=== PATIENT | male | born 1960 | race Caucasian/White ===

== ENCOUNTER 2017-11-02 19:59 | Inpatient (IN) | payer OTHER ==
[~2017-11-02] VITALS: Ht 175.3 cm; Wt 97.0 kg
[2017-11-02] MEDS ORDERED: ASPIRIN 325 MG TABLET PO STA (20:04)
[2017-11-02 20:20] LABS: BASOPHILS # (AUTO) 0.04 x10^3/uL (0-0.1); BASOPHILS % (AUTO) 0 % (0-1); EOSINOPHILS # (AUTO) 0.15 x10^3/uL (0-0.4); EOSINOPHILS % (AUTO) 2 % (1-7); LYMPHOCYTES # (AUTO) 2.48 x10^3/uL (1-3.4); LYMPHOCYTES % (AUTO) 27 % (22-44); MD NO; MEAN CORPUSCULAR HEMOGLOBIN 30.2 pg (27.5-34.5); MEAN CORPUSCULAR HGB CONC 34.1 g/dL (33.2-36.2); MEAN CORPUSCULAR VOLUME 88.4 fL (81-97); MEAN PLATELET VOLUME 7.1 fL (7.4-10.4); MONOCYTES # (AUTO) 0.58 x10^3/uL (0.2-0.8); MONOCYTES % (AUTO) 6 % (2-9); NEUTROPHILS # (AUTO) 6.05 x10^3/uL (1.8-6.8); NEUTROPHILS % (AUTO) 65 % (42-75); PLATELET COUNT 295 x10^3/uL (130-400); RED BLOOD COUNT 5.85 x10^6/uL (4.38-5.82)
[2017-11-02 20:26] LABS: INTERNATIONAL NORMALIZED RATIO 0.97 (0.93-1.1)
[2017-11-02] MEDS ORDERED: LIDOCAINE-MPF 2% ,5ML ONE (20:26)
[2017-11-02] MEDS ORDERED: HEPARIN 1,000 UNITS/ML, 10ML ONE (20:26)
[2017-11-02] MEDS ORDERED: FENTANYL PF 100 MCG/2ML ONE (20:26)
[2017-11-02] MEDS ORDERED: VERAPAMIL 2.5 MG/ML, 2ML ONE (20:26)
[2017-11-02] MEDS ORDERED: BIVALIRUDIN 250 MG ONE (20:26)
[2017-11-02] MEDS ORDERED: TICAGRELOR 90 MG TABLET ONE (20:26)
[2017-11-02] MEDS ORDERED: MIDAZOLAM 1 MG/ML, 5ML ONE (20:26)
[2017-11-02] MEDS ORDERED: FENTANYL PF 100 MCG/2ML IVPush PRN (20:30)
[2017-11-02] MEDS ORDERED: PLEASE ENTER HEIGHT AND WEIGHT MC SCH (20:30)
[2017-11-02] MEDS ORDERED: PLEASE ENTER ALLERGIES MC SCH (20:30)
[2017-11-02] MEDS ORDERED: NITROGLYCERIN 0.4 MG BOTTLE (25 TABS) SL PRN (20:30)
[2017-11-02] MEDS ORDERED: ONDANSETRON 2MG/ML, 2ML IVPush PRN (21:00)
[2017-11-02] MEDS ORDERED: BISACODYL 5 MG EC TABLET PO PRN (21:00)
[2017-11-02] MEDS ORDERED: ACETAMINOPHEN 325 MG TABLET PO PRN (21:00)
[2017-11-02] MEDS ORDERED: ONDANSETRON ODT 4 MG PO PRN (21:30)
[2017-11-02] MEDS: SODIUM CHLORIDE 0.9% 1,000 ML IV SCH (21:59)
[2017-11-02] MEDS: TICAGRELOR 90 MG TABLET PO SCH (22:00)
[2017-11-02] MEDS: METOPROLOL TARTRATE 25 MG TABLET PO SCH (22:00)
[2017-11-02] MEDS: ATORVASTATIN 80 MG TABLET PO SCH (22:00)
[2017-11-03] MEDS ORDERED: MORPHINE SULFATE 4 MG/ML, 1ML IVPush PRN
[2017-11-03] MEDS: SODIUM CHLORIDE 0.9% 1,000 ML IV SCH (04:38)
[2017-11-03 04:49] VITALS: BP 166/97
[2017-11-03] MEDS: METOPROLOL TARTRATE 25 MG TABLET PO SCH ×2 (04:49→17:16)
[2017-11-03 05:00] LABS: ALBUMIN 3.8 g/dL (3.4-5.0); ANION GAP 8 mmol/L (5-15); CALCIUM 8.6 mg/dL (8.5-10.1); CHLORIDE 107 mmol/L (98-107); CREATININE 1.01 mg/dL (0.7-1.3)
[2017-11-03] MEDS: ASPIRIN 81 MG TABLET EC PO SCH (08:20)
[2017-11-03] MEDS: TICAGRELOR 90 MG TABLET PO SCH ×2 (08:20→20:39)
[2017-11-03] MEDS: LISINOPRIL 5 MG TABLET PO SCH (10:51)
[2017-11-03 17:15] VITALS: BP 111/70
[2017-11-03 20:00] VITALS: BP 155/95
[2017-11-03] MEDS: ATORVASTATIN 80 MG TABLET PO SCH (20:39)
[2017-11-03] MEDS: ZOLPIDEM 5MG TABLET PO PRN (22:42)
[2017-11-04 02:00] VITALS: BP 150/91
[2017-11-04 05:58] VITALS: BP 166/108
[2017-11-04] MEDS: METOPROLOL TARTRATE 25 MG TABLET PO SCH ×2 (05:59→18:06)
[2017-11-04] MEDS: TICAGRELOR 90 MG TABLET PO SCH ×2 (07:59→20:14)
[2017-11-04] MEDS: LISINOPRIL 5 MG TABLET PO SCH (07:59)
[2017-11-04] MEDS: ASPIRIN 81 MG TABLET EC PO SCH (07:59)
[2017-11-04 09:31] VITALS: BP 150/95
[2017-11-04 14:23] VITALS: BP 128/79
[2017-11-04 18:43] VITALS: BP 142/84
[2017-11-04] MEDS: ATORVASTATIN 80 MG TABLET PO SCH (20:13)
[2017-11-04] MEDS: LISINOPRIL 10 MG TABLET PO SCH (20:14)
[2017-11-04] MEDS: ZOLPIDEM 5MG TABLET PO PRN (22:50)
[2017-11-05 03:50] VITALS: BP 148/91
[2017-11-05] MEDS: METOPROLOL TARTRATE 25 MG TABLET PO SCH (05:44)
[2017-11-05 06:53] VITALS: BP 150/100
[2017-11-05] MEDS ORDERED: ASPI-621 PO (08:17)
[2017-11-05] MEDS ORDERED: ATOR-2 PO (08:17)
[2017-11-05] MEDS ORDERED: LISI-167 PO (08:17)
[2017-11-05] MEDS ORDERED: METO50TA4 PO (08:17)
[2017-11-05] MEDS ORDERED: TICA90TA PO (08:17)
[2017-11-05] MEDS: TICAGRELOR 90 MG TABLET PO SCH (09:04)
[2017-11-05] MEDS: ASPIRIN 81 MG TABLET EC PO SCH (09:04)
[2017-11-05] MEDS: LISINOPRIL 10 MG TABLET PO SCH (09:04)
[2017-11-05 09:05] VITALS: BP 150/95
[2017-11-05] MEDS ORDERED: LISI-170 PO (14:04)
== END 2017-11-05 10:30 | disposition home or self-care (01) | DRG 247 ==
LOC: ED 21:05 → CCU 21:09 → ED 23:19 → 5SO 11-03 17:00 → DCLOUNGE 11-05 10:07
PROVIDERS: ADMIT Internal Medicine Cardiovascular Disease; ATTEND Internal Medicine Cardiovascular Disease
PROC: 027034Z Dilation of Coronary Artery, One Artery with Drug-eluting Intraluminal Device, Percutaneous Approach (ICD-10-PCS; principal; 2017-11-02)
PROC: 4A023N7 Measurement of Cardiac Sampling and Pressure, Left Heart, Percutaneous Approach (ICD-10-PCS; 2017-11-02)
PROC: B2111ZZ Fluoroscopy of Multiple Coronary Arteries using Low Osmolar Contrast (ICD-10-PCS; 2017-11-02)
PROC: B2151ZZ Fluoroscopy of Left Heart using Low Osmolar Contrast (ICD-10-PCS; 2017-11-02)
DX: I21.4 Non-ST elevation (NSTEMI) myocardial infarction (principal); I11.9 Hypertensive heart disease without heart failure; E11.9 Type 2 diabetes mellitus without complications; E66.9 Obesity, unspecified; E78.5 Hyperlipidemia, unspecified; I35.1 Nonrheumatic aortic (valve) insufficiency; I44.0 Atrioventricular block, first degree; I44.4 Left anterior fascicular block; Z68.31 Body mass index [BMI] 31.0-31.9, adult; Z82.49 Family history of ischemic heart disease and other diseases of the circulatory system; Z95.5 Presence of coronary angioplasty implant and graft; Z87.891 Personal history of nicotine dependence
CPT/HCPCS: 36415; 71045; 80047; 80048; 82040; 84484; 85025; 85610; 85730; 87081; 93005; 93306; 93458; 99156; 99291; C1769; C1894; J0583; J1644; J2250; J2405; J3010; J3490; C1725; C1874; C1887; J7030; Q9967

== ENCOUNTER 2018-07-11 13:09 | Emergency (ER) | payer OTHER ==
[~2018-07-11] VITALS: Ht 175.3 cm; Wt 90.6 kg
[~2018-07-11 13:09] MED LIST: ASPI81TA45 PO; ATOR-2 PO; LISI-167 PO; LISI-170 PO; METO50TA4 PO; TICA90TA PO
[2018-07-11] MEDS ORDERED: MAALOX/HYOSCYAMINE/LIDOCAINE 45 ML BTL ONE (14:15)
[2018-07-11] MEDS ORDERED: ASPIRIN 81 MG TABLET CHEW ONE (14:15)
[2018-07-11] MEDS ORDERED: ASPIRIN 81 MG TABLET CHEW PO ONE (14:30)
[2018-07-11] MEDS ORDERED: MAALOX/HYOSCYAMINE/LIDOCAINE 45 ML BTL PO ONE (14:30)
[2018-07-11 14:31] LABS: MEAN CORPUSCULAR HEMOGLOBIN 31.5 pg (27.5-34.5); MEAN CORPUSCULAR HGB CONC 34.4 g/dL (33.2-36.2); MEAN CORPUSCULAR VOLUME 91.6 fL (81-97); RED BLOOD COUNT 5.33 x10^6/uL (4.38-5.82); RED CELL DISTRIBUTION WIDTH 12.9 % (9.4-14.8)
[2018-07-11 14:32] LABS: BASOPHILS # (AUTO) 0.02 x10^3/uL (0-0.1); BASOPHILS % (AUTO) 0 % (0-1); EOSINOPHILS # (AUTO) 0.11 x10^3/uL (0-0.4); EOSINOPHILS % (AUTO) 2 % (1-7); LYMPHOCYTES # (AUTO) 1.74 x10^3/uL (1-3.4); LYMPHOCYTES % (AUTO) 24 % (22-44); MD NO; MEAN PLATELET VOLUME 6.9 fL (7.4-10.4); MONOCYTES # (AUTO) 0.44 x10^3/uL (0.2-0.8); MONOCYTES % (AUTO) 6 % (2-9); NEUTROPHILS # (AUTO) 4.93 x10^3/uL (1.8-6.8); NEUTROPHILS % (AUTO) 68 % (42-75); PLATELET COUNT 298 x10^3/uL (130-400)
[2018-07-11 14:39] LABS: ALBUMIN 4.2 g/dL (3.4-5.0); ANION GAP 5 mmol/L (5-15); CHLORIDE 103 mmol/L (98-107)
[2018-07-11 14:44] LABS: ALANINE AMINOTRANSFERASE 35 U/L (12-78); ALKALINE PHOSPHATASE 117 U/L (45-117); BILIRUBIN,TOTAL 0.7 mg/dL (0.2-1.0); CREATININE 1.32 mg/dL (0.7-1.3); TOTAL PROTEIN 8.1 g/dL (6.4-8.2); TROPONIN I < 0.015 ng/mL (0.000-0.045)
[2018-07-11 16:01] VITALS: BP 109/67
== END 2018-07-11 16:03 | disposition home or self-care (01) ==
LOC: ED 15:36
DX: R07.89 Other chest pain (principal); I25.2 Old myocardial infarction; I10 Essential (primary) hypertension; E11.9 Type 2 diabetes mellitus without complications; E78.5 Hyperlipidemia, unspecified
CPT/HCPCS: 36415; 71045; 80053; 83880; 84484; 85025; 93005; 99284

== ENCOUNTER 2018-12-13 13:16 | Emergency (ER) | payer OTHER ==
[~2018-12-13] VITALS: Ht 175.3 cm; Wt 90.7 kg
[2018-12-13] MEDS ORDERED: MAALOX/HYOSCYAMINE/LIDOCAINE 45 ML BTL ONE (13:50)
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
[2018-12-13] MEDS ORDERED: MAALOX/HYOSCYAMINE/LIDOCAINE 45 ML BTL PO ONE (14:00)
[2018-12-13 14:02] LABS: BASOPHILS # (AUTO) 0.04 x10^3/uL (0-0.1); BASOPHILS % (AUTO) 1 % (0-1); EOSINOPHILS # (AUTO) 0.08 x10^3/uL (0-0.4); EOSINOPHILS % (AUTO) 1 % (1-7); LYMPHOCYTES # (AUTO) 1.58 x10^3/uL (1-3.4); LYMPHOCYTES % (AUTO) 21 % (22-44); MD NO; MEAN CORPUSCULAR HEMOGLOBIN 30.4 pg (27.5-34.5); MEAN CORPUSCULAR HGB CONC 32.9 g/dL (33.2-36.2); MEAN CORPUSCULAR VOLUME 92.5 fL (81-97); MEAN PLATELET VOLUME 6.6 fL (7.4-10.4); MONOCYTES # (AUTO) 0.42 x10^3/uL (0.2-0.8); MONOCYTES % (AUTO) 6 % (2-9); NEUTROPHILS % (AUTO) 72 % (42-75); PLATELET COUNT 263 x10^3/uL (130-400); RED BLOOD COUNT 5.22 x10^6/uL (4.38-5.82); RED CELL DISTRIBUTION WIDTH 13.3 % (9.4-14.8)
[2018-12-13 14:13] LABS: ALANINE AMINOTRANSFERASE 34 U/L (12-78); ANION GAP 6 mmol/L (5-15); CALCIUM 9.6 mg/dL (8.5-10.1); CHLORIDE 105 mmol/L (98-107)
[2018-12-13 14:18] LABS: ALKALINE PHOSPHATASE 94 U/L (45-117); BILIRUBIN,TOTAL 0.7 mg/dL (0.2-1.0); TOTAL PROTEIN 7.5 g/dL (6.4-8.2); TROPONIN I < 0.015 ng/mL (0.000-0.045)
[2018-12-13 15:19] LABS: MICROSCOPIC NOT IND
[2018-12-13 15:30] LABS: CULTURE INDICATED? NO
--- NOTE | 2018-12-13 15:31 | NUR ---
Break RN: US complete, pt sitting up in bed on phone. No needs at this time. Results pending.
--- NOTE | 2018-12-13 15:31 | NUR ---
Note jeny in EDM - 12/13/18 at 1553 by TRAM Break RN: US complete, pt sitting up in bed on phone. No needs at this time. Results pending.
[2018-12-13 15:46] VITALS: BP 105/72
== END 2018-12-13 16:19 | disposition home or self-care (01) ==
LOC: ED 14:55
DX: K29.00 Acute gastritis without bleeding (principal); R10.13 Epigastric pain; E78.5 Hyperlipidemia, unspecified; E11.9 Type 2 diabetes mellitus without complications; I10 Essential (primary) hypertension; I25.2 Old myocardial infarction
CPT/HCPCS: 36415; 76700; 80053; 81003; 83690; 84484; 85025; 93005; 99284

== ENCOUNTER 2019-07-17 20:38 | Emergency (ER) | payer OTHER ==
[~2019-07-17] VITALS: Ht 175.3 cm; Wt 92.8 kg
[2019-07-17 20:41] VITALS: BP 167/97
[2019-07-17 21:13] LABS: BASOPHILS # (AUTO) 0.03 x10^3/uL (0-0.1); BASOPHILS % (AUTO) 0 % (0-1); EOSINOPHILS # (AUTO) 0.13 x10^3/uL (0-0.4); EOSINOPHILS % (AUTO) 2 % (1-7); LYMPHOCYTES # (AUTO) 1.92 x10^3/uL (1-3.4); LYMPHOCYTES % (AUTO) 27 % (22-44); MD NO; MEAN CORPUSCULAR HEMOGLOBIN 31.9 pg (27.5-34.5); MEAN CORPUSCULAR HGB CONC 33.8 g/dL (33.2-36.2); MEAN CORPUSCULAR VOLUME 94.4 fL (81-97); MEAN PLATELET VOLUME 6.8 fL (7.4-10.4); MONOCYTES # (AUTO) 0.45 x10^3/uL (0.2-0.8); MONOCYTES % (AUTO) 6 % (2-9); NEUTROPHILS # (AUTO) 4.57 x10^3/uL (1.8-6.8); NEUTROPHILS % (AUTO) 64 % (42-75); PLATELET COUNT 286 x10^3/uL (130-400); RED BLOOD COUNT 5.11 x10^6/uL (4.38-5.82); RED CELL DISTRIBUTION WIDTH 13.6 % (9.4-14.8)
[2019-07-17 21:25] LABS: ALANINE AMINOTRANSFERASE 43 U/L (12-78); ALBUMIN 4.1 g/dL (3.4-5.0); ANION GAP 5 mmol/L (5-15); CALCIUM 10.1 mg/dL (8.5-10.1); CHLORIDE 105 mmol/L (98-107); CREATININE 1.15 mg/dL (0.7-1.3)
[2019-07-17 21:29] LABS: ALKALINE PHOSPHATASE 84 U/L (45-117); BILIRUBIN,TOTAL 0.5 mg/dL (0.2-1.0); TOTAL PROTEIN 7.9 g/dL (6.4-8.2); TROPONIN I < 0.015 ng/mL (0.000-0.045)
== END 2019-07-17 22:26 | disposition home or self-care (01) ==
LOC: ED 21:51
DX: R07.89 Other chest pain (principal); R06.02 Shortness of breath; R42 Dizziness and giddiness
CPT/HCPCS: 36415; 71045; 76700; 80053; 83880; 84484; 85025; 93005; 99284

== ENCOUNTER 2020-04-09 19:34 | Emergency (ER) | payer OTHER ==
[~2020-04-09] VITALS: Ht 175.3 cm; Wt 88.2 kg
--- NOTE | 2020-04-09 19:55 | NUR ---
FLOOR FRAMER: EKG DONE IN TRIAGE.
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
[2020-04-09] MEDS ORDERED: SODIUM CHLORIDE FLUSH 10ML SYR IVF ONE (20:30)
[2020-04-09 20:49] LABS: BASOPHILS # (AUTO) 0.07 x10^3/uL (0-0.1); BASOPHILS % (AUTO) 1 % (0-1); EOSINOPHILS # (AUTO) 0.14 x10^3/uL (0-0.4); EOSINOPHILS % (AUTO) 2 % (1-7); LYMPHOCYTES # (AUTO) 1.79 x10^3/uL (1-3.4); LYMPHOCYTES % (AUTO) 22 % (22-44); MD NO; MEAN CORPUSCULAR HEMOGLOBIN 31.9 pg (27.5-34.5); MEAN CORPUSCULAR HGB CONC 33.6 g/dL (33.2-36.2); MEAN PLATELET VOLUME 6.5 fL (7.4-10.4); MONOCYTES # (AUTO) 0.28 x10^3/uL (0.2-0.8); MONOCYTES % (AUTO) 3 % (2-9); NEUTROPHILS # (AUTO) 5.99 x10^3/uL (1.8-6.8); NEUTROPHILS % (AUTO) 72 % (42-75); PLATELET COUNT 283 x10^3/uL (130-400); RED BLOOD COUNT 4.84 x10^6/uL (4.38-5.82); RED CELL DISTRIBUTION WIDTH 14.4 % (9.4-14.8)
[2020-04-09 20:58] LABS: ALANINE AMINOTRANSFERASE 48 U/L (12-78); ALBUMIN 3.8 g/dL (3.4-5.0); ANION GAP 4 mmol/L (5-15); CALCIUM 9.9 mg/dL (8.5-10.1); CHLORIDE 103 mmol/L (98-107)
[2020-04-09 21:03] LABS: ALKALINE PHOSPHATASE 66 U/L (45-117); BILIRUBIN,TOTAL 0.7 mg/dL (0.2-1.0); CREATININE 1.16 mg/dL (0.7-1.3); TOTAL PROTEIN 7.4 g/dL (6.4-8.2); TROPONIN I < 0.015 ng/mL (0.000-0.045)
[2020-04-09 21:14] VITALS: BP 112/56
[2020-04-09] MEDS ORDERED: MAALOX/HYOSCYAMINE/LIDOCAINE 45 ML BTL ONE (21:41)
[2020-04-09] MEDS ORDERED: MAALOX/HYOSCYAMINE/LIDOCAINE 45 ML BTL PO ONE (22:00)
--- NOTE | 2020-04-09 22:10 | NUR ---
Pt medicated per emar.
--- NOTE | 2020-04-09 22:29 | NUR ---
Patient/Caregiver given discharge instructions and they have confirmed that they understand the instructions. Patient ambulatory with steady gait.
== END 2020-04-09 22:32 | disposition home or self-care (01) ==
LOC: ED 20:53
DX: I25.10 Atherosclerotic heart disease of native coronary artery without angina pectoris (principal); R07.89 Other chest pain; I25.2 Old myocardial infarction; E11.9 Type 2 diabetes mellitus without complications; I10 Essential (primary) hypertension; E78.5 Hyperlipidemia, unspecified; K21.9 Gastro-esophageal reflux disease without esophagitis; Z98.61 Coronary angioplasty status
CPT/HCPCS: 36415; 71045; 80053; 84484; 85025; 93005; 99285

== ENCOUNTER 2020-05-20 14:58 | Day surgery (SDC) | payer OTHER ==
[~2020-05-20] VITALS: Ht 175.3 cm; Wt 91.2 kg
[~2020-05-20 14:58] MED LIST changes: +CEFAZOLIN 1,000 MG ONE; +DEXAMETHASONE 4 MG/ML, 1ML ONE; +KETOROLAC 30 MG/1 ML ONE; +ONDANSETRON 2MG/ML, 2ML ONE; +PROPOFOL 10 MG/ML, 20ML ONE; +SUCCINYLCHOLINE 20 MG/ML, 10ML ONE; +SUGAMMADEX 200 MG/2 ML IVPush ONE
--- NOTE | 2020-05-20 15:16 | NUR ---
C/O RLQ PAIN. STARTED YESTERDAY. WORSENS W/ COUGHING, MOVEMENT. DENIES N/V. DIARRHEA YESTERDAY, BUT NOT TODAY. LAST ORAL INTAKE: 729. TUMS TAKEN AT 1130 TODAY.
[2020-05-20] MEDS ORDERED: HYDR12.575 PO (15:20)
--- NOTE | 2020-05-20 15:22 | NUR ---
PT NOTIFIED OF NEED FOR URINE SPECIMEN. STATES NO URGE TO VOID, CURRENTLY.
[2020-05-20 15:57] LABS: BASOPHILS % (AUTO) 0 % (0-1); EOSINOPHILS % (AUTO) 0 % (1-7); LYMPHOCYTES % (AUTO) 14 % (22-44); MEAN CORPUSCULAR HEMOGLOBIN 32.2 pg (27.5-34.5); MEAN PLATELET VOLUME 6.6 fL (7.4-10.4); MONOCYTES % (AUTO) 6 % (2-9); NEUTROPHILS % (AUTO) 80 % (42-75); PLATELET COUNT 259 x10^3/uL (130-400); RED BLOOD COUNT 4.73 x10^6/uL (4.38-5.82)
[2020-05-20 15:58] LABS: ALANINE AMINOTRANSFERASE 35 U/L (12-78); ANION GAP 4 mmol/L (5-15); CALCIUM 9.4 mg/dL (8.5-10.1); CHLORIDE 103 mmol/L (98-107)
[2020-05-20 16:00] LABS: ALKALINE PHOSPHATASE 94 U/L (45-117); BILIRUBIN,TOTAL 0.9 mg/dL (0.2-1.0); CREATININE 1.05 mg/dL (0.7-1.3); TOTAL PROTEIN 7.6 g/dL (6.4-8.2)
--- NOTE | 2020-05-20 16:08 | NUR ---
VOIDED SPECIMEN PROVIDED: CLEAR YELLOW. PT AWAITING CT
--- NOTE | 2020-05-20 16:09 | NUR ---
PT REFUSED OFFER OF PAIN MED AT THIS TIME.
--- NOTE | 2020-05-20 16:21 | NUR ---
PT ENDORSED TO BREAK RN.
[2020-05-20 16:23] LABS: MICROSCOPIC NOT IND
[2020-05-20] MEDS ORDERED: OMNIPAQUE 350 MG/ML, 100ML BOTTLE ONE (16:36)
[2020-05-20 16:57] LABS: MD NO
[2020-05-20] MEDS ORDERED: SODIUM CHLORIDE 0.9% 1,000ML IVBOLUS ONE (17:00)
[2020-05-20] MEDS ORDERED: NS + 20MEQ KCL 1,000 ML IV SCH (17:00)
[2020-05-20] MEDS ORDERED: MORPHINE SULFATE 4 MG/ML, 1ML IVPush ONE (17:00)
[2020-05-20] MEDS ORDERED: ONDANSETRON 2MG/ML, 2ML IVPush ONE (17:00)
[2020-05-20] MEDS ORDERED: CEFOTETAN PMX 1GM/50ML 50 ML IVPB ONE (17:00)
--- NOTE | 2020-05-20 17:19 | NUR ---
PT SITTING QUIETLY ON GURNEY. REFUSED OFFER OF PAIN MED, AT THIS TIME.
--- NOTE | 2020-05-20 18:01 | NUR ---
PT REPORT TO BASSEM DONALD RN: VO TO HOLD NS+20mEq KCL.
--- NOTE | 2020-05-20 18:09 | NUR ---
CEFOTAN GIO, INFUSING AT 100ML/HR VIA PUMP. NS BOLUS INFUSING. IV SITE PATENT.
[2020-05-20] MEDS ORDERED: EPINEPHRINE 1 MG/ML, 1ML ONE (18:12)
[2020-05-20] MEDS ORDERED: BUPIVACAINE/PF 0.25% ONE (18:12)
--- NOTE | 2020-05-20 18:17 | NUR ---
OR TECH HERE FOR PT TRANSPORT
[2020-05-20] MEDS ORDERED: MIDAZOLAM 1 MG/ML, 2ML ONE (18:36)
[2020-05-20] MEDS ORDERED: FENTANYL PF 250 MCG/5ML ONE (18:38)
[2020-05-20] MEDS ORDERED: PROPOFOL 10 MG/ML, 20ML ONE (18:38)
[2020-05-20] MEDS ORDERED: DEXAMETHASONE 4 MG/ML, 1ML ONE ×2 (18:38→18:39)
[2020-05-20] MEDS ORDERED: CEFAZOLIN 1,000 MG ONE ×2 (18:39)
[2020-05-20] MEDS ORDERED: BUPIVACAINE/PF-EPI 0.25% 1:200K INFIL ONE (18:51)
[2020-05-20] MEDS ORDERED: MEPERIDINE/PF 25MG/0.5ML IVPush PRN (19:00)
[2020-05-20] MEDS ORDERED: FENTANYL PF 100 MCG/2ML IV PRN (19:00)
[2020-05-20] MEDS ORDERED: PROMETHAZINE 12.5 MG SUPP PR PRN (19:00)
[2020-05-20] MEDS ORDERED: MIDAZOLAM 1 MG/ML, 2ML IV PRN (19:00)
[2020-05-20] MEDS ORDERED: ONDANSETRON 2MG/ML, 2ML IVPush PRN ×2 (19:00→21:00)
[2020-05-20] MEDS ORDERED: HYDROmorphone 1 MG/ML, 1ML INJ IVPush PRN (19:00)
[2020-05-20] MEDS ORDERED: EPHEDRINE 50 MG/ML, 1ML IVPush PRN (19:00)
[2020-05-20] MEDS ORDERED: OXYcodone 5 MG/5 ML ORAL.SOL UDC PO PRN ×2 (19:00→21:00)
[2020-05-20] MEDS ORDERED: DIPHENHYDRAMINE 50 MG/ML, 1ML IVPush PRN ×2 (19:00→21:00)
[2020-05-20] MEDS ORDERED: ALBUTEROL SULFATE 2.5 MG/3 ML NPPB PRN (19:00)
[2020-05-20] MEDS ORDERED: ACETAMINOPHEN 325 MG TABLET PO PRN (19:00)
[2020-05-20] MEDS ORDERED: LABETALOL 5MG/ML, 20ML IV PRN (19:00)
[2020-05-20] MEDS ORDERED: DIAZEPAM 5 MG/ML, 2ML IVPush PRN (19:00)
[2020-05-20] MEDS ORDERED: hydrALAzine 20 MG/ML, 1ML IV PRN (19:00)
[2020-05-20] MEDS ORDERED: PROMETHAZINE 25 MG/ML, 1ML IVPush PRN (19:00)
[2020-05-20] MEDS ORDERED: OXYcodone 5 MG/5 ML ORAL.SOL UDC ONE (19:43)
[2020-05-20] MEDS ORDERED: LACTATED RINGERS 1,000 ML IV SCH (21:00)
[2020-05-20] MEDS ORDERED: ACETAMINOPHEN 500 MG TABLET PO PRN (21:00)
[2020-05-20] MEDS ORDERED: KETOROLAC 30 MG/1 ML IV PRN (21:00)
[2020-05-20] MEDS ORDERED: OXYC5TAB2 PO (22:06)
[2020-05-20 22:20] VITALS: BP 123/85
== END 2020-05-20 22:15 | disposition home or self-care (01) ==
LOC: ED 16:07 → EDIP 16:51 → UNDOADMIN 16:51 → OUT 19:30 → 4NE 20:35 → EDIP 20:35 → UNDODISIN 22:15 → OUT 22:15
PROVIDERS: ATTEND Surgery
DX: K35.80 Unspecified acute appendicitis (principal); Z20.828 Contact with and (suspected) exposure to other viral communicable diseases; K38.8 Other specified diseases of appendix; I10 Essential (primary) hypertension; E11.9 Type 2 diabetes mellitus without complications; E78.5 Hyperlipidemia, unspecified; I25.10 Atherosclerotic heart disease of native coronary artery without angina pectoris; I25.2 Old myocardial infarction; F17.210 Nicotine dependence, cigarettes, uncomplicated; Z79.82 Long term (current) use of aspirin; Z79.899 Other long term (current) drug therapy; Z88.5 Allergy status to narcotic agent; Z95.5 Presence of coronary angioplasty implant and graft
CPT/HCPCS: 36415; 44970; 74177; 80053; 81003; 83690; 85025; 87635; 88304; 99285; J0171; J0330; J0690; J1100; J1885; J2250; J2405; J2704; J3010; J7030; Q9967; G0378